=== PATIENT | female | born 1995 | race Caucasian/White ===

== ENCOUNTER 2017-12-12 14:59 | Emergency (ER) | payer MEDICAID ==
[~2017-12-12] VITALS: Ht 149.9 cm; Wt 39.3 kg
[2017-12-12 15:02] VITALS: BP 133/92
[2017-12-12] MEDS ORDERED: PROPARACAINE OPHTH 0.5%, 15ML ONE (15:18)
[2017-12-12] MEDS ORDERED: PROPARACAINE OPHTH 0.5%, 15ML EACHEYE ONE (15:30)
[2017-12-12] MEDS ORDERED: FLUORESCEIN OPHTHALMIC 1 MG STRIP EACHEYE ONE (15:30)
[2017-12-12] MEDS ORDERED: DIPH,PERTUSS(ACELL),TET VAC/PF 0.5 ML IM-VACC ONE (16:00)
== END 2017-12-12 16:01 | disposition left against medical advice (07) ==
LOC: ED 15:55
DX: T15.02XA Foreign body in cornea, left eye, initial encounter (principal); W45.8XXA Other foreign body or object entering through skin, initial encounter
CPT/HCPCS: 65222; 99284

== ENCOUNTER 2018-02-11 20:47 | Emergency (ER) | payer MEDICAID ==
[~2018-02-11] VITALS: Ht 149.9 cm; Wt 42.1 kg
[2018-02-11] MEDS ORDERED: AZITHROMYCIN 500 MG TABLET PO ONE (21:30)
[2018-02-11] MEDS ORDERED: CEFTRIAXONE 250 MG IM ONE (21:30)
[2018-02-11 21:36] LABS: HCG UR SG 1.036 (1.003-1.030)
[2018-02-11 21:45] LABS: MICROSCOPIC INDICATED
[2018-02-11 21:46] LABS: CULTURE INDICATED? YES
[2018-02-11] MEDS ORDERED: AZITHROMYCIN 500 MG TABLET ONE (22:15)
[2018-02-11] MEDS ORDERED: CEFTRIAXONE 250 MG ONE (22:16)
== END 2018-02-11 22:36 | disposition home or self-care (01) ==
LOC: ED 22:30
DX: N30.00 Acute cystitis without hematuria (principal); A56.01 Chlamydial cystitis and urethritis; A59.03 Trichomonal cystitis and urethritis; F17.200 Nicotine dependence, unspecified, uncomplicated
CPT/HCPCS: 81001; 81025; 87086; 87491; 87591; 96372; 99283; J0696; 87147

== ENCOUNTER 2020-01-23 19:48 | Emergency (ER) | payer MEDICAID ==
[~2020-01-23] VITALS: Ht 149.9 cm; Wt 44.4 kg
--- NOTE | 2020-01-23 19:59 | NUR ---
c-colar applied in triage
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
[2020-01-23] MEDS ORDERED: ONDANSETRON 2MG/ML, 2ML ONE (20:19)
[2020-01-23] MEDS ORDERED: FENTANYL PF 100 MCG/2ML ONE (20:20)
[2020-01-23 20:25] VITALS: BP 113/90
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
[2020-01-23] MEDS ORDERED: ONDANSETRON 2MG/ML, 2ML IVPush ONE (20:30)
[2020-01-23] MEDS ORDERED: FENTANYL PF 100 MCG/2ML IVPush ONE (20:30)
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
== END 2020-01-23 20:42 | disposition short-term general hospital (02) ==
LOC: ED 20:18
DX: M54.5 Low back pain (principal); R10.11 Right upper quadrant pain; F17.200 Nicotine dependence, unspecified, uncomplicated; V57.5XXA Driver of pick-up truck or van injured in collision with fixed or stationary object in traffic accident, initial encounter; Y93.89 Activity, other specified; Y92.488 Other paved roadways as the place of occurrence of the external cause; Y99.8 Other external cause status
CPT/HCPCS: 93005; 96374; 96375; 99285; J2405; J3010